=== PATIENT | female | born 1990 | race Hispanic/Latino ===

== ENCOUNTER 2020-08-21 19:35 | Emergency (ER) | payer OTHER, SELFPAY ==
[2020-08-21] MEDS ORDERED: Cyclobenzaprine 10 MG TAB ONE (20:09)
== END 2020-08-21 20:15 | disposition home or self-care (01) ==
LOC: NAV ERS 19:35
DX: S43.401A Unspecified sprain of right shoulder joint, initial encounter (principal)
CPT/HCPCS: 99283

== ENCOUNTER 2024-01-17 13:21 | Emergency (ER) | payer SELFPAY | END 2024-01-17 15:57 | disposition home or self-care (01) | LOC: NAV ERS 13:21 | DX: O20.0 Threatened abortion (principal); Z3A.01 Less than 8 weeks gestation of pregnancy | CPT/HCPCS: 84702; 99284 ==